=== PATIENT | female | born 1980 | race African-American/Black ===

== ENCOUNTER 2017-04-05 05:28 | Inpatient (IN) | payer OTHER ==
[~2017-04-05] VITALS: Ht 160 cm; Wt 68.0 kg
[2017-04-05] VITALS (19 sets, daily range): BP systolic 91–127; BP diastolic 47–74
--- NOTE | 2017-04-05 05:20 | NUR ---
PATIENT ARRIVED FROM ER TO ROOM 256. PATIENT TO BATHROOM TO VOID AT PRESENT. SVE OF 5 TO 6 CM, 80% EFFACED, -2 STATION. PATIENT PLACED ON EXTERNAL MONITOR. HEART RATE OF 140. VARIABLES NOTED WITH HEART RATE TO 95 BUT TO 120 IN LESS THAN 10 SECONDS. PATIENT PLACED ON RIGHT SIDE AND OXYGEN ADMINISTERED.
--- NOTE | 2017-04-05 05:20 | NUR ---
CONSENT OBTAINED FOR DRUGS OF ABUSE AND SENT TO LAB FOR ANALYSIS.
[~2017-04-05 05:28] MED LIST: AMOXICILLIN500 MG PO; CIPROFLOXACN500 MG PO; PRENATAL1 TA1 PO; PROVENTIL HFA IN; RANITIDINE HCL150 MG PO; ROBITUSSIN AC10 ML PO; ZOFRAN ODT4 MG PO
--- NOTE | 2017-04-05 05:34 | NUR ---
SVE OF 5 TO 6 CM, 80%M, -2 STATION.
--- NOTE | 2017-04-05 05:40 | NUR ---
IV FLUIDS OF LACTATED RINGERS AT 125CC/HR INFUSING.
--- NOTE | 2017-04-05 05:40 | NUR ---
IV SALINE LOCK #20 TO RIGHT HAND STARTED ATTEMPT X1.
--- NOTE | 2017-04-05 06:00 | NUR ---
DR. LIMA AND NOTIFIED OF PATIENT'S PRESENCE ON UNIT. ORDERS RECEIVED FOR IV LABS AND GBS POSITIVE PROTOCOL WITH PENICILLIN TO BE ORDERED.
[2017-04-05 06:03] LABS: BARBITURATES NEGATIVE (NEGATIVE); COCAINE NEGATIVE (NEGATIVE); METHADONE NEGATIVE (NEGATIVE); OXCYCODONE NEGATIVE (NEGATIVE); TETRAHYDROCANNABIONOL NEGATIVE (NEGATIVE); TRICYLIC ANTIDEPRESSANTS NEGATIVE (NEGATIVE); URINE BILIRUBIN - DIPSTICK NEGATIVE (NEGATIVE); URINE BLOOD DIPSTICK LARGE (NEGATIVE); URINE CLARITY CLEAR; URINE COLOR YELLOW; URINE GLUCOSE - DIPSTICK NEGATIVE (NEGATIVE); URINE KETONE NEGATIVE (NEGATIVE); URINE NITRITE - DIPSTICK NEGATIVE (Negative); URINE PROTEIN - DIPSTICK NEGATIVE (NEG-TRACE); URINE SPECIFIC GRAVITY <=1.005; URINE UROBILINOGEN - DIPSTICK 0.2 E.U./dL (0.2)
[2017-04-05 06:04] LABS: URINE LEUK ESTERASE SMALL (NEGATIVE)
[2017-04-05 06:14] LABS: HEMATOCRIT 31.5 % (37.0-47.0); HEMOGLOBIN 10.5 g/dl (12.0-16.0); IMMATURE GRANULOCYTES 0.3 % (0.0-1.0); MEAN CELL VOLUME 92.9 fL CALC (80.0-100.0); MEAN CORPUSCULAR HGB CONC 33.3 g/L CALC (32.0-36.0); NEUT# 5.68 thou/uL (2.00-7.15); RED BLOOD COUNT 3.39 mill/uL (4.20-5.60); RED CELL DISTRI WIDTH 13.8 % (11.5-15.5)
--- NOTE | 2017-04-05 06:30 | NUR ---
PENICILLIN 5,000,000 G GIVEN IV.
[2017-04-05 06:33] LABS: ALBUMIN 3.1 g/dL (3.2-5.0); ALKALINE PHOSPHATASE 111 u/l (38-126); ANION GAP 12 (6-22 (CALC)); BILIRUBIN, TOTAL 0.3 mg/dL (0.0-1.4); BUN 5 mg/dL (7-17); BUN/CREATININE RATIO 7 (12-20 (CALC)); CARBON DIOXIDE 25 mmol/l (22-30); CHLORIDE 106 mmol/l (95-108); CREATININE 0.6 mg/dL (0.5-1.0); GFR > 60 ML/MIN (>=60 (CALC)); GFR FOR AFR.AMER. > 60 ML/MIN (>=60 (CALC)); GLUCOSE 72 mg/dL (65-105); POTASSIUM 3.8 mmol/l (3.5-5.1); SGOT/AST 19 u/l (14-36); SGPT/ALT 24 u/l (9-52); SODIUM 139 mmol/l (137-146); TOTAL PROTEIN 6.2 g/dL (6.3-8.2)
--- NOTE | 2017-04-05 06:45 | NUR ---
REPORT BEING PREPARED FOR ONCOMING SHIFT.
--- NOTE | 2017-04-05 06:50 | NUR ---
PATIENT BREATHING THROUGH CONTRACTIONS. PATIENT DENIES NEED FOR PAIN MEDS AT THIS TIME. PATIENT STATES SHE WILL ASK FOR IT WHEN SHE NEEDS IT. PATIENT COACHED ON BREATHING TECHNIQUES AND OFFERED ASSIST TO BATHROOM FOR URINATION. PATIENT DENIES NEEDING TO GO TO BATHROOM AT THIS POINT.
--- NOTE | 2017-04-05 06:50 | NUR ---
RECIEVED REPORT FROM KATALINA MAKI RN.
--- NOTE | 2017-04-05 06:55 | NUR ---
PT UP TO BRP, VOIDED THEN MOVED TO BIRTHING ROOM #1. TEEN DAUGHTER REMAINS AT BEDSIDE AND SUPPORTIVE. BREATHING WELL WITH CTX.
--- NOTE | 2017-04-05 07:08 | NUR ---
PT STATES PRESSURE/URGE TO HAVE BM. SVE DONE, 8 CM, +1/+2 STATION, AND 100%. EARLY/VARIABLE DECELS NOTED WITH CTX. DR LIMA ON UNIT, UPDATED ON PT PROGRESS.
--- NOTE | 2017-04-05 07:12 | NUR ---
DR LIMA IN TO SEE PT. SVE DONE, ANTERIOR LIP. AROM PREFORMED FOR CLEAR FLUID. DIFFICULTY WITH ROSALIA RN ADJUSTING.
--- NOTE | 2017-04-05 07:26 | NUR ---
PT STATES INCREASED URGE TO PUSH. DR LIMA INTO ROOM. VARIABLE/EARLY DECELS NOTED WITH SOME CTX. SVE DONE, COMPLETE AT 0727. PT STARTING TO PUSH WITH CTX. MD AND RN REMAINS AT BEDSIDE AND SUPPORTIVE. DAUGHTER AT BEDSIDE AND SUPPORTIVE. PT DOING WELL WITH PUSHING.
--- NOTE | 2017-04-05 07:38 | NUR ---
DECEL NOTED, VARIABLE. IVF BOLUS NOTED, AND O2 VIA NONREBREATHER FACE MASK AT 10 L/MIN ON. PT IS ENCOURAGED TO DO SLOW DEEP BREATHING.
--- NOTE | 2017-04-05 07:57 | NUR ---
LAWSON APPLIED BY AWAJUNITO CTX FOR PT TO PUSH.
--- NOTE | 2017-04-05 07:59 | NUR ---
PRESENTING HEAD , KIWI REMOVED. PT CONTINUING STRONG PUSHING.
--- NOTE | 2017-04-05 08:01 | NUR ---
KIWI ASSISTED VAGINAL DELIVERY. FULL TERM VIGOROUS OVER INTACT PERINEUM.
--- NOTE | 2017-04-05 08:07 | NUR ---
OF INTACT PLACENTA. PITOCIN STARTED, 300 ML BOLUS. PO CYTOTEC GIVEN. PT STATES SHE IS SHAKY AND COLD, GAVE WARM BLANKET, PERICARE DONE. FUNDUS FIRM AT 2 FBBU. LOCHEA IS MODERATE. PT RESTING WITH EYES CLOSED HOLDING CLOSE.
--- NOTE | 2017-04-05 08:26 | NUR ---
PT DIZZY, AND COLD, AND SHAKY. LOCHEA IS MODERATE, PERICARE DONE. FUNDUS REMAINS FIRM AT 2 FBBU. PT GOING BETWEEN RESTING AND WORKING WITH . TEEN DAUGHTER REMAINS AT BEDSIDE AND SUPPORTIVE.
--- NOTE | 2017-04-05 08:40 | NUR ---
PT UP IN BED. CONDITION IS STABLE. LOCHEA IS MODERATE, FUNDUS FIRM AT 2 FBBU. LESS SHAKY, DIZZY, AND COLD. HOLDING CLOSE. NO NEEDS AT THIS TIME.
--- NOTE | 2017-04-05 08:56 | NUR ---
PERICARE DONE, LOCHEA IS MODERATE. FUNDUS FIRM AT 2 FBBU. PT RESTING. STILL SLIGHTLY SHAKY AND DIZZY.
--- NOTE | 2017-04-05 09:10 | NUR ---
PT UP TO BRP, VOIDED 400ML, PERICARE DONE WITH INSTRUCTIONS. PT COLD, SHAKY AND DIZZY. RN REMAINS AT SIDE FOR SUPPORT. LOCHEA IS LIGHT/MODERATE. PT TO ROOM 207 VIA W/C. ASSISTED PT TO BED, GAVE NEW WARM BLANKETS AND BREAKFAST. IV PITOCIN IS RUNNING. PT TOLERATE MEAL WELL.
--- NOTE | 2017-04-05 09:23 | NUR ---
PT UP IN BED, FEELING A BETTER, JUST VERY TIRED NOW. GOING TO REST. HER TEEN DAUGHTER IS GOING TO BOTTLE FEED FOR RIGHT NOW SINCE SHE IS SO TIRED.
--- NOTE | 2017-04-05 09:37 | NUR ---
GAVE MOTRIN FOR PAIN, PT DIZZY AND COLD STILL, ATE SOME BREAKFAST.
--- NOTE | 2017-04-05 10:00 | NUR ---
PT RESTING QUIETLY, FUNDUS STILL FIRM AT 2 FBBU. LOCHEA IS LIGHT/MODERATE. PT GOING TO TAKE A NAP. DAUGHTER LEAVING UNIT NOW. INFANT RESTING QUIETLY AT BEDSIDE.
--- NOTE | 2017-04-05 10:53 | NUR ---
LOCHEA IS LIGHT/MOD. FUNDUS REMAINS FIRM AT 2 FBBU. PT STILL TIRED. GOING TO REST SOME MORE. NO NEEDS AT THIS TIME.
--- NOTE | 2017-04-05 11:25 | NUR ---
SMOKING CESSATION PACKET GIVEN. PT REQUESTS NICOTINE PATCH, BUT WILL ASK FOR IT WHEN SHE IS READY, DOES NOT WANT IT ON YET. SHE IS GOING TO QUIT SMOKING NOW BECAUSE SHE IS .
--- NOTE | 2017-04-05 11:35 | NUR ---
PT UP TO BRP, VOIDED, MODERATE LOCHEA NOTED. SELF PERICARE DONE. TOLERATED WELL. THEN PT AMBULATED BACK TO BED AND SITTING UP AND EATING LUNCH.
--- NOTE | 2017-04-05 12:40 | NUR ---
IV TO SALINE LOCK.
--- NOTE | 2017-04-05 14:10 | NUR ---
PT UP TO BRP, NO LONGER SHAKY, STILL VERY SLIGHTLY DIZZY, INSTRUCTED TO NOT GET UP BY HERSELF. VOIDED. LIGHT LOCHEA NOTED. THEN PT RETURNED TO BED. CONDITION IS STABLE. FAMILY VISITING.
--- NOTE | 2017-04-05 16:00 | NUR ---
VITALS CHARTED. PT IS UP WITH FAMILY VISITING. BPR, VOIDED AND LOCHEA IS LIGHT. CONDITION IS STABLE. PT STILL NOT WANTING NICOTINE PATCH, BUT MIGHT LATER. MOTRIN GIVEN FOR CRAMPING.
--- NOTE | 2017-04-05 17:17 | NUR ---
PT RESTING QUIETLY IN BED WITH EYES CLOSED. NO S/S OF DISTRESS NOTED. IN OPEN CRIB AT BEDSDIE.
--- NOTE | 2017-04-05 18:16 | NUR ---
PT UP IN BED. FINISHED DINNER. CONDITION IS STABLE. PT STATES NO NEEDS AT THIS TIME. REPORT IS READY FOR NEXT SHIFT.
--- NOTE | 2017-04-05 19:00 | NUR ---
REPORT RECEIVED. PT LAYING IN BED, DENIES NEEDS AT THIS TIME. PT STABLE. WILL CONTINUE TO MONITOR.
--- NOTE | 2017-04-06 04:51 | NUR ---
PT REQUESTED MEDICATION FOR PAIN. MEDICATED PER JAN AT 04/08. PLACED IN OPEN CRIB AND PT TRYING TO REST. CALL LIGHT IN REACH.
[2017-04-06 06:00] VITALS: BP 94/62
[2017-04-06 06:32] LABS: HEMATOCRIT 31.8 % (37.0-47.0); HEMOGLOBIN 10.8 g/dl (12.0-16.0); IMMATURE GRANULOCYTES 0.5 % (0.0-1.0); MEAN CORPUSCULAR HGB 31.6 pG CALC (26.0-32.0); NEUT# 7.84 thou/uL (2.00-7.15); RED BLOOD COUNT 3.42 mill/uL (4.20-5.60); RED CELL DISTRI WIDTH 13.6 % (11.5-15.5)
--- NOTE | 2017-04-06 07:08 | NUR ---
REPORT PREPARED AND GIVEN TO Ayad ARNDT RN. PT LAYING IN BED AWAKE. DENIES NEEDS AT THIS TIME.
--- NOTE | 2017-04-06 08:53 | NUR ---
PT IN ROOM HOLDING . PT DENIES ANY NEEDS AT THIS TIME AND RN EXPLAINED TEACHING AND PAPERS THAT NEEDED TO BE FILLED OUT. PT VERBAILZES UNDERSTANDING. PT VITALS STABLE AND BLEEDING WITHIN NORMAL LIMITS. PT WOULD LIKE TO SLEEP BECAUSE SHE WAS UP ALL NIGHT LONG. INFANT HANDED TO FATHER AND ALL NEEDS ARE MET AT THIS TIME. RN WILL CONTINUE TO MONITOR.
--- NOTE | 2017-04-06 15:55 | NUR ---
PT RESTING IN BED. PT DENIES ANY NEEDS AT THIS TIME. RN STRESSED THE IMPORTANCE OF WATCHING THE VIDEOS AND READING OVER THE TEACHING AGAIN. PT REQUESTS TO REST AT THIS TIME AND WILL LOOK AT IT LATER.
[2017-04-06 20:10] VITALS: BP 105/51
--- NOTE | 2017-04-06 20:10 | NUR ---
PT AWAKE AND ALERT, AMBULATING IN THE ROOM, DENIES ANY CONCERNS AT THIS TIME, ASSESSMENT AND VSS DONE- WNL. PT ENCOURAGED TO CALL OUT FOR ANY NEEDS OR CONCERNS, WILL CONT TO MONITOR.
--- NOTE | 2017-04-07 00:45 | NUR ---
PT RESTING IN BED ON LEFT SIDE WITH INFANT TO BREAST. C/O MODERATE PAIN TO ABDOMINAL AREA-MEDICATION GIVEN ORDERED. RESPIRATIONS EVEN AND UNLABORED. NO OTHER REQUESTS AT THIS TIME. CALL LIGHT SYSTEM REVIEWED AND IN REACH. WILL CONTINUE TO MONITOR.
[2017-04-07 04:23] VITALS: BP 104/45
--- NOTE | 2017-04-07 06:05 | NUR ---
PT RESTING QUIETLY IN BED W/EYES CLOSED, NO DISTRESS OF ANY KIND NOTED AT THIS TIME.
--- NOTE | 2017-04-07 07:30 | NUR ---
PATIENT WALKING ABOUT IN ROOM. ASSESSMENT DONE. DENIES PAIN AT THIS TIME. SMOKING CESSATION INFORMATION DISCUSSED. WILL FURNISH WITH PACKET BEFORE DISCHARGE. ANXIOUS TO GO HOME TODAY. ALL QUESTIONS ANSWERED.
[2017-04-07 08:09] VITALS: BP 113/58
[2017-04-07] MEDS ORDERED: NICOTINE T21 MG/PATC TD (08:40)
[2017-04-07] MEDS ORDERED: IBUPROFEN600 MG PO (08:59)
--- NOTE | 2017-04-07 10:43 | NUR ---
Discharge instructions given. Patient verbalizes understanding of same. Discharged in stable condition via Wheelchair to Home with family. All belongings sent with pt. GOT PRESCRIPTIONS FILLED WITH NORMAS.
== END 2017-04-07 10:43 | disposition home or self-care (01) | DRG 775 ==
LOC: OB 05:28 → OBOP 05:28 → OB 05:35
PROVIDERS: ADMIT Obstetrics & Gynecology; ATTEND Obstetrics & Gynecology
PROC: 10D07Z6 Extraction of Products of Conception, Vacuum, Via Natural or Artificial Opening (ICD-10-PCS; principal; 2017-04-05)
PROC: 10907ZC Drainage of Amniotic Fluid, Therapeutic from Products of Conception, Via Natural or Artificial Opening (ICD-10-PCS; 2017-04-05)
DX: O99.334 Smoking (tobacco) complicating childbirth (principal); F17.210 Nicotine dependence, cigarettes, uncomplicated; Z3A.40 40 weeks gestation of pregnancy; Z37.0 Single live birth
CPT/HCPCS: J2540

== ENCOUNTER 2019-01-15 23:03 | Emergency (ER) | payer SELFPAY ==
[~2019-01-15] VITALS: Ht 160 cm; Wt 61.3 kg
[~2019-01-15 23:03] MED LIST changes: +IBUPROFEN600 MG PO; +NICOTINE T21 MG/PATC TD
[2019-01-15 23:52] LABS: URINE BILIRUBIN - DIPSTICK NEGATIVE (NEGATIVE); URINE BLOOD DIPSTICK NEGATIVE (NEGATIVE); URINE COLOR YELLOW; URINE GLUCOSE - DIPSTICK NEGATIVE (NEGATIVE); URINE KETONE NEGATIVE (NEGATIVE); URINE LEUK ESTERASE TRACE (NEGATIVE); URINE NITRITE - DIPSTICK NEGATIVE (Negative); URINE PROTEIN - DIPSTICK NEGATIVE (NEG-TRACE); URINE UROBILINOGEN - DIPSTICK 0.2 E.U./dL (0.2)
[2019-01-15 23:52] LABS: IMMATURE GRANULOCYTES 0.2 % (0.0-5.0); MEAN CORPUSCULAR HGB 30.4 pG CALC (26.0-32.0); NEUT# 4.85 thou/uL (2.00-7.15); RED BLOOD COUNT 4.25 mill/uL (4.20-5.60); RED CELL DISTRI WIDTH 14.4 % (11.5-15.5)
[2019-01-15 23:53] LABS: HEMATOCRIT 39.1 % (37.0-47.0); HEMOGLOBIN 12.9 g/dl (12.0-16.0)
[2019-01-16 00:08] LABS: ALBUMIN 4.6 g/dL (3.2-5.0); ALKALINE PHOSPHATASE 50 u/l (38-126); ANION GAP 13 (6-22 (CALC)); BILIRUBIN, TOTAL 0.3 mg/dL (0.0-1.4); BUN 13 mg/dL (7-17); BUN/CREATININE RATIO 13 (12-20 (CALC)); CARBON DIOXIDE 29 mmol/l (22-30); CHLORIDE 103 mmol/l (95-108); GFR > 60 ML/MIN (>=60 (CALC)); GFR FOR AFR.AMER. > 60 ML/MIN (>=60 (CALC)); SGOT/AST 19 u/l (14-36); SODIUM 140 mmol/l (137-146); TOTAL PROTEIN 7.5 g/dL (6.3-8.2)
[2019-01-16] MEDS ORDERED: LOMOTIL2.5 MG PO (00:21)
[2019-01-16 00:40] VITALS: BP 90/57
== END 2019-01-16 00:40 | disposition home or self-care (01) | DRG 392 ==
LOC: ED 23:03
PROVIDERS: Family Medicine
DX: A08.4 Viral intestinal infection, unspecified (principal); J45.909 Unspecified asthma, uncomplicated; F17.210 Nicotine dependence, cigarettes, uncomplicated